=== PATIENT | female | born 1945 | race Asian ===

== ENCOUNTER → 2020-05-23 08:46 | Outpatient (CLI) | payer MEDICARE, OTHER, SELFPAY ==
[2020-05-23 10:58] LABS: COVID19 -Nasal RAPID Negative (Negative)
== END ==
PROVIDERS: Visit Provider Nurse Practitioner
DX: Z01.812 Encounter for preprocedural laboratory examination (principal); Z20.822 Contact with and (suspected) exposure to COVID-19
CPT/HCPCS: 87635; C9803

== ENCOUNTER 2020-05-24 06:29 | Day surgery (SDC) | payer MEDICARE, OTHER, SELFPAY ==
[2020-05-17 08:52] VITALS: BMI 24.6
[2020-05-24] VITALS (14 sets, daily range): BP systolic 112–147; BP diastolic 49–85; PULSE 55–92; RESP 13–21; TEMP 35.8–36.4; O2SAT 95–99; BMI 23.2
--- NOTE | 2020-05-24 | DI.RAD.S_ITS ---
PROCEDURE: XR CERVICAL SPINE 2V OR 3V INDICATIONS: C5-6 ACDF (HODA-C) TECHNIQUE: 2 operative view(s) of the cervical spine were acquired. COMPARISON: None. FINDINGS: Operative C-arm imaging demonstrates ACDF at C5-C6 with no radiographic evidence of complications. IMPRESSION: Operative imaging utilized during ACDF at C5-C6. Dictated by: Jesu López M.D. on 05/24/2020 at 10:05 Approved by: Jesu López M.D. on 05/24/2020 at 10:06
[2020-05-24] MEDS: ACETAMINOPHEN 325 MG TABLET 975 MG PO (06:53)
[2020-05-24] MEDS: LACTATED RINGERS 1,000 ML 42 ML IV (06:53)
--- NOTE | 2020-05-24 07:09 | PM.PREOP ---
Pre-operative Note COVID-19 COVID-19 status: Negative Result date/Date tested (Pos, Neg/Pending): 05/23/20 Interval Note History & Physical reviewed/Exam performed by Physician: Yes Changes to H&P: No
[2020-05-24] MEDS: CEFAZOLIN 2 GM/100 ML FROZ.PIGGY IV (07:53)
--- NOTE | 2020-05-24 08:30 | SUR.OPER ---
Supine, head on gel donut. Arms padded with gel pads, tucked at sides, towel roll under shoulders. Safety belt at thigh. Legs uncrossed.
[2020-05-24] MEDS: BUPIVACAINE 0.25% W/ EPI 30 ML VIAL 60 ML INJ (08:38)
[2020-05-24] MEDS: SODIUM CHLORIDE 0.9% 1,000 ML, GENTAMICIN 80 MG IRR (08:39)
[2020-05-24] MEDS: THROMBIN (RECOMBINANT) 5,000 UNIT VIAL 5000 UNIT TOP (08:39)
--- NOTE | 2020-05-24 09:06 | P.OP_ITS ---
Operative Date/Time/Diagnoses Date of procedure: 05/24/20 Time of procedure: 09:06 Pre-op diagnosis: Cervical disc herniation with myelopathy Post-op diagnosis: same Procedure & Clinicians Procedure: C5-6 ACDF with cage Iliac crest bone graft aspirate Use of microscope Same procedure as scheduled: Yes Indications: [age] year old female with intractable pain from cervical myelopathy. They had failed conservative management and requested operative intervention. Risks and benefits of surgery were discussed and appropriate consents were obtained. Surgeon: Solo Vega [employer] Associate: Annie Vu Anesthesia Type: General Operative Notes Findings: None Closure Type: primary Specimen(s): none sent Prosthetic devices, grafts, tissues, transplants, or devices: Dyan HODA-C Estimated Blood Loss (mL): 5 Procedure in detail: Patient was brought to the operating room and intubated on the table. A time-out was performed. Preoperative antibiotics were given. The neck was prepped and draped in the standard sterile fashion. Using a skin fold, we made a 3 cm oblique incision on the left side. We used Bovie to go through the platysma and then did a standard anterolateral blunt dissection down to the precervical fascia. Fascia was nicked and elevated up. A marker was placed and x-ray was taken for localization. We then subperiosteally elevated up the longus colli muscles. Self-retaining retractors were placed. Ca spar pins were placed. We then brought in the microscope. A scalpel used to perform an annulotomy. We then used a combination of pituitaries and curettes and Kerrison to perform a complete anterior diskectomy at C5-6. We used the bur to take down the posterior osteophytes. We took down the PLL and used Kerrison to remove any posterior disc material and osteophytes. At the end we could from the nerve hook cephalad caudally and out the foramen and everything was opened. A small stab incision was made over the left anterior iliac crest. A Jamshidi needle was advanced into the pelvis and 2 mL of bone marrow was aspirated. We then used the trials. We then packed a 12 x 15.5 x 5 mm anatomic HODA-C cage with Primagen bone graft and the iliac crest harvest. The cage was placed under fluoroscopic guidance. We then placed our two locking plates. The self- retaining retractors and Keyport pins were removed and final x-rays taken. The wound was irrigated. There was no bleeding. The carotid was beating nicely. The platysma was closed. The superficial was closed. The skin was closed. A sterile dressing was placed. They were then extubated and brought to recovery room with no complications. Complications: none Post-operative Condition: stable Disposition: PACU Plan for aftercare: Overnight admission. Soft collar for comfort.
[2020-05-24] MEDS: CELECOXIB 200 MG CAPSULE 400 MG PO (13:10)
[2020-05-24] MEDS: ACETAMINOPHEN 325 MG TABLET 650 MG PO ×2 (13:11→20:26)
[2020-05-24] MEDS: BENZOCAINE/MENTHOL 1 LOZ PKT 1 EACH PO (13:11)
--- NOTE | 2020-05-24 14:53 | PC.NURSE ---
Ortho: Was able to tolerate diet. Pt reports throat feels sore and hot. Got a cough drop and she said it was a little better. Has voided since surgery. Seen by PT at 1445 and didn't pass safety. She will be staying the night. Dr. Vega made aware/was here. Son is at bedside.
--- NOTE | 2020-05-24 14:55 | PT.IIE ---
Current Diagnoses Spinal stenosis, cervical region (05/24/20) Strain of muscle, fascia and tendon at neck level, initial encounter (05/24/20) Surgery Performed Operation Date: 05/24/20 07:45 Actual Procedures p C56 anterior cervical discectomy and fusion w. bone graft - Solo Vega MD Surgical History (Last Updated 05/17/20 @ 09:14 by Avis Dominguez RN) History of 2 sections Hx of angioplasty (~2000) Medical History CAD (coronary artery disease) CHF (congestive heart failure) (~07/2019) HLD (hyperlipidemia) HTN (hypertension) Language barrier Physical Therapy Inpatient Evaluation M1 PT/OT-IP Prior Functional Status Start: 05/24/20 15:19 Freq: NEEDED Status: Active Protocol: Document 05/24/20 15:19 [facility] (Rec: 05/24/20 15:57 [facility] [id number]) Medical Review Prior Functional Status Communication Independent to states her needs, pt is soft spoken at times hard to hear what she is saying. Mobility and Gait Prior pt states does use any devices to walk with and prior to left sided weakness which started in July 2019 and able to walk her dog 3-5 miles a day. Pt states now mainly just walkiing inside the house. Activities of Daily Living and IADL's Pt states able to do all ADl's , IADL's and currently her stove is broken and that he son and her have been eating out a lot. Prior Functional Level (Other details) Pt lives with her son, Amilcar and he will be staying at home to assist for the 1st 1.5 weeks to assist with her needs. However, pt insistent on not having him help for hygiene and showering needs. Social History Household Members children Living Arrangements House Number of Floors (Floors) One Floor Number of Stairs To Enter/Railing? One step from the garage and use of door frame and door knob or right rail with one step from the front porch. Home Environment Standard Height Toilet,Walk in Shower M2 PT-IP Current Condition Start: 05/24/20 13:34 Freq: NEEDED Status: Active Protocol: Document 05/24/20 14:49 AW (Rec: 05/24/20 15:59 AW [id number]) Physical Therapy Current Condition Current Condition Evaluation Date 05/24/20 Treatment Diagnosis C5-6 ACDF; left-side weakness; decreased independence with ADL's Onset Date 05/24/20 Precautions Cervical Spine Precautions Soft Collar for Comfort,No Heavy Lifting,Log Roll Brace soft cervical collar for comfort M3 PT-IP Subjective Start: 05/24/20 13:34 Freq: NEEDED Status: Active Protocol: Document 05/24/20 14:49 AW (Rec: 05/24/20 15:59 AW [id number]) Subjective Physical Therapy Visit Type Type Initial Evaluation Visit Start Time 13:53 Visit Stop Time 14:49 Total Visit Minutes 56 Notes Co-eval with OT Number of CARRIER WASHER Visits 0 Physical Therapy Visit Comments Patient Comments Pt is willing to participate with therapy Patient Goals Pt hopes to go home to take care of her dogPat. Therapy Pain Assessment Pain When Pain Assessed During Mobility Pain Present Pain Present Denied Pain M4 PT-IP Mobility and Gait Start: 05/24/20 13:34 Freq: NEEDED Status: Active Protocol: Document 05/24/20 14:49 AW (Rec: 05/24/20 15:59 AW [id number]) PT-Bed Mobility Assessment Rolling Type of Rolling Log Rolling Level of Assist Minimal Assistance,Moderate Assistance,1 Person Assistance Supine to Sit Supine to Sit Minimal Assistance,Moderate Assistance,1 Person Assistance Sit to Supine Sit to Supine Minimal Assistance,Moderate Assistance,1 Person Assistance ,Bedrails Scooting Scooting to Edge of Bed Contact Guard Assistance PT-Transfer Assessment Sit to and From Stand Sit to and from Stand Standby Assistance,Contact Guard Assistance,1 Person Assistance Equipment Transfer Assistive Device Gait Belt Orthotic/Prosthetic Devices or Brace: Yes Transfers Transfer Destination Bed,Chair,Toilet Transfer Technique Stand Step Pivot Transfer Ability Level of Assist Contact Guard Assistance Comments Mobility Comments Pt was sitting up in the chair with feet up on cushion as PT and OT arrived. She was able to scoot forward on the chair and to stand CGA. She ambulated without AD to the toilet where she required CGA while pulling down her briefs and to transfer. When finished , she ambulated to the sink CGA for hygiene tasks. She was able to open toothpaste without UE support on the counter. Pt then donned a face mask and ambulated in the halls SBA ~220 feet. Gait speed was WNL and predicts safe home and community ambulation. On return to the room, pt agreed to practice bed mobility. Pt's bed is tall and she uses a step to climb up. With platform step as side of bed, pt demonstrated how she normally climbs the step facing the bed and then places her right knee up on the bed before turning to lie down. PT instructed pt on log roll technique. Pt had difficulty coordinating the movement and required min to mod assist and constant cues for sequencing. Pt agreed that log roll felt less stressful on her neck. Pt stepped off the platform and transferred to the chair CGA. PT left as OT continued treatment. Gait Assessment Gait Gait Assistance Required: Standby Assistance Distance (Feet) 220 Able to Maintain Weight Bearing Status Yes During Gait Assistive Devices Assistive Device Gait Belt Orthotic/Prosthetic Devices or Brace: Yes Gait Deviations General Gait Pattern Decreased Feet Clearance, Flexed Trunk,Narrow Based Gait Factors Limiting Gait Function Factors Limiting Gait Function Decreased Strength Comments Gait Comments See mobility comments for details. Pt ambulates with flexed posture and requires cues for scanning the environment (increased need currently due to restricted lower field of vision with soft collar). Stair Climbing Assessment Evaluation Level of Assist On Stairs Contact Guard Assistance Devices Stair Climbing Assistive Devices None Technique/Endurance Stair Climbing Direction Ascend and Descend Number of Steps Climbed 1 Query Text: Stair Climbing Set # Repetitions (reps) 2 Comments Stair Climbing Comments CGA for platform step next to bed. Pt held on to mattress as she stepped up and down. PT-Balance Assessment Sitting Balance and Reactions Static Sitting Balance Ability Good Dynamic Sitting Balance Ability Good Standing Balance and Reactions Static Standing Balance Ability Good Dynamic Standing Balance Ability Good Device Used no AD M5 PT-IP Objective Assessments Start: 05/24/20 13:34 Freq: NEEDED Status: Active Protocol: Document 05/24/20 14:49 AW (Rec: 05/24/20 16:14 AW [id number]) Orientation Orientation/Cognition Level of Alertness Alert Orientation Name,Month,Place,Situation Language Function Ability [place] as Second Language Safety Awareness Decreased Safety Awareness Memory Description Short Term Impaired Gross Range of Motion Lower Extremity ROM Assessment Within Functional Limits Strength Lower Extremity Strength Assessment Left Impaired Comments Strength Comments RLE grossly 5/5; LLE 4+/5 Coordination Assessment Gross Coordination Gross Coordination Impaired Assessment Finger to Nose Test Minimal Impairment Pronation/Supination Test Minimal Impairment Sensation Assessment Sensation Gross Sensation WNL Comments Sensation Comments Pt denied sensation disturbance in all extremities . Muscle Tone Comments Muscle Tone Comments Pt not assessed for tone but does ambulate with LUE held in modified flexor pattern. Pt states she was evaluated for CVA earlier this year but imaging ruled out stroke. M6 PT-IP Treatment Start: 05/24/20 13:34 Freq: NEEDED Status: Active Protocol: Document 05/24/20 14:49 AW (Rec: 05/24/20 16:14 AW [id number]) Physical Therapy Treatment Education Education Provided Precautions,Post-Op Packet, Safety Brace Education Donning,Fordyce,Patient Other Treatments Other Treatment Performed Used mirror for visual feedback to teach donning/ doffing soft cervical collar. M7 PT-IP Assessment and Plan Start: 05/24/20 13:34 Freq: NEEDED Status: Active Protocol: Document 05/24/20 14:49 AW (Rec: 05/24/20 16:14 AW [id number]) PT Summary Assessment and Plan Potential Rehabilitation Potential Good Status of Condition at Evaluation Evolving Summary Impairments Pain,ROM,Strength,Balance,Bed Mobility,Transfers,Gait Assessment Summary Marlyn is a 75yo woman seen for PT evaluation on POD0 following C5-6 ACDF. She is independent with household mobility at baseline and states she was walking several miles daily before beginning to experience pain and numbness in her left side last July. Pt required SBA for ambulation, CGA for transfers, and min to mod assist for bed mobility on evaluation. She had difficulty initiating movement with her left arm, in particular, during bed mobility attempts. She has options for sleeping at home, including a recliner, a low couch, and a tall bed. Pt would benefit from at least one more acute PT session to reinforce mobility skills and for caregiver training with her son who lives with her. CGT to take place at 10:00 Thursday. Pt would also benefit from continued therapy either via HH or outpatient PT. Goals Bed Mobility Goal Standby Assistance Transfer Goal Independent Gait Goal Independent Gait Distance 200 Other Goals - IF pt decides to sleep in bed at home, pt will enter/ exit tall bed with platform step SBA Days to Meet Goals 4 Frequency of Treatment Frequency Of Treatment Twice a Day Treatment Plan Physical Therapy Treatment Plan Bed Mobility Training,Transfer Training,Gait Training, Therapeutic Exercise,Balance Retraining,Post Op Education, Discharge Planning,Hot or Cold Pack,Neuromuscular Re-ed, Coordination Retraining Other Recommendations and Next Treatment caregiver training focused on Focus bed moblility and transfers with sonAmilcar at 10:00 AM Thursday Recommendations To Nursing Amount of Assist Needed 1 Person Assist Discharge Recommendations PT Discharge Recommendations Home with Assistance,Home Health,Outpatient PT Other Discharge Recommendations Home with assist and HH vs outpatient PT Equipment Needed for Home Before shower chair Discharge Transportation Needs at Discharge Private Vehicle
--- NOTE | 2020-05-24 15:08 | OT.IP.EVAL ---
Current Diagnoses Spinal stenosis, cervical region (05/24/20) Strain of muscle, fascia and tendon at neck level, initial encounter (05/24/20) Surgery Performed Operation Date: 05/24/20 07:45 Actual Procedures p C56 anterior cervical discectomy and fusion w. bone graft - Solo Vega MD Past Medical History CAD (coronary artery disease) CHF (congestive heart failure) (~07/2019) HLD (hyperlipidemia) HTN (hypertension) Language barrier Surgical History (Last Updated 05/17/20 @ 09:14 by Avis Dominguez RN) History of 2 sections Hx of angioplasty (~2000) Occupational Therapy Inpatient Evaluation/Re-Eval M1 PT/OT-IP Prior Functional Status Start: 05/24/20 15:19 Freq: NEEDED Status: Active Protocol: Document 05/24/20 15:19 [facility] (Rec: 05/24/20 15:57 [facility] [id number]) Medical Review Prior Functional Status Communication Independent to state her needs, pt is soft spoken at times hard to hear what she is saying. Mobility and Gait Prior pt states does use any devices to walk with and prior to left sided weakness which started in July 2019 and able to walk her dog 3-5 miles a day. Pt states now mainly just walking inside the house. Activities of Daily Living and IADL's Pt states able to do all ADl's , IADL's and currently her stove is broken and that he son and her have been eating out a lot. Prior Functional Level (Other details) Pt lives with her son, Amilcar and he will be staying at home to assist for the 1st 1.5 weeks to assist with her needs. However, pt insistent on not having him help for hygiene and showering needs. Social History Household Members children Living Arrangements House Number of Floors (Floors) One Floor Number of Stairs To Enter/Railing? One step from the garage and use of door frame and door knob or right rail with one step from the front porch. 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 Patient/Caregiver Goals To go home to her dog OT Pain Assessment Pain When Pain Assessed At Rest Pain Present Pain Present Denied Pain M4 OT- IP ADL's Start: 05/24/20 15:19 Freq: Status: Active Protocol: Document 05/24/20 15:19 [facility] (Rec: 05/24/20 15:57 [facility] [id number]) OT [id number] Comments OT Self-Feeding Comments Able to go over and give information regarding sitting upright to eat, chew food thoroughly, and eat softer food. OT ADL-Grooming General Evaluation Grooming Ability Standby Assistance Areas Needing Assistance Retrieving/Set-up of Grooming Items Comments OT Grooming Comments Pt having difficulty to tighten the soft collar and needing a little assist from therapist. to continue to practice tomorrow. OT ADL-Oral Care General Eval Oral Care Ability Standby Assistance Comments Oral Care Comments VC to spit into a cup to best follow her cervical precautions. OT ADL-Dressing General Eval Lower Body Dressing Ability Minimal Assistance,Maximum Assistance Comments OT Dressing Comments Pt not able to edgar/doff socks as prior would bend over while standing to doff her socks. Able to issue and show pt use of sock aid and jewelry appraiser to help improve her independence with LB dressing needs. In addition emphasized for pt to sit for all dressing needs. OT ADL-Toileting General Evaluation Toileting Ability Minimal Assistance Areas Needing Assistance Manage Clothing Comments OT Toileting Comments Pt needing assist to help pull down the brief over her hips and then back up. OT ADL-Bathing Comments OT Bathing Comments TO do showering with OT tomorrow. Initially pt not wanting to shower and felt insistent able to do it on her own like how she did before which was standing. M5 OT- IP IADL's Start: 05/24/20 15:19 Freq: Status: Active Protocol: Document 05/24/20 15:19 [facility] (Rec: 05/24/20 15:57 [facility] [id number]) OT-Instrumental Activities of Daily Living Home Safety Awareness Awareness of Need for Assistance at Home Decreased Awareness Home Safety Comments Pt a bit groggy and at this time would benefit from assist with all needs of medications , finances, ADl , and IADl needs. Money Management Money Management Comments Pt states mainly just signs the checks and her son fills out the rest as her hand shakes. M6 OT- IP Functional Cognition Start: 05/24/20 15:19 Freq: Status: Active Protocol: Document 05/24/20 15:19 [facility] (Rec: 05/24/20 15:57 [facility] [id number]) Cognitive Factors Limiting Selfcare Function Cognitive Ability Level of Alertness Alert,Drowsy Patient Orientation Name,Place,Situation Attention Span Ability Capable of Focused Attention, Capable of Sustained Attention Ability to Follow Commands Able to Follow One Step Commands with Increased Time, Able to Follow One Step Commands with Repetition Memory Description Short Term Impaired,Working Impaired Safety Awareness Decreased Ability to Apply Precautions,Underestimates Need for Assistance Problem Solving Ability Unable to Identify Errors, Needs Assist to Identify Solutions Cognitive Comments Cognitive Assessment Comments Pt having difficulty to follow directions, slow to initiate movement of left side when scooting on the bed. Pt needing step by step instructions to follow for bed mobility. Pt son's did not feel that pt has any cognitive deficits and feels that she is at her baseline. OT- Vision Assessment Visual Acuity Glasses For Reading Vision Assessment Comments Reading/Sewing glasses M7 OT- IP Mobility and Balance Start: 05/24/20 15:19 Freq: Status: Active Protocol: Document 05/24/20 15:19 [facility] (Rec: 05/24/20 15:57 [facility] [id number]) OT- Bed Mobility Assessment Supine to Sit Supine to Sit Assist Minimal Assistance,Moderate Assistance Sit to Supine Sit to Supine Assist Minimal Assistance,Moderate Assistance OT-Transfer Assessment Sit to and From Stand Sit to and from Stand Contact Guard Assistance Transfers Transfer Ability Standby Assistance,Contact Guard Assistance Technique Transfer Destination Bed,Chair,Toilet Transfer Technique Stand Step Pivot Devices Transfer Assistive Devices None,Gait Belt Comments Mobility Comments Pt MODA to help to roll to her side and assist to help get her legs over. Pt having trouble to initiate movements for log rolling and how to more her left arm to assist. Pt did better with use of the bed rail and states to obtain one. Pt has another option of sleeping in a deep recliner or low couch. Pt son states prior would get behind the recliner and assist to pull her back from underneath her arms. Suggested would be best at this time to place a sheet in the recliner and assist her by pulling on the sheet. OT- Gait Assessment Comments Gait Ability Comments Close SBA. OT- Balance Assessment Sitting Balance and Reactions Static Sitting Balance Ability Normal Dynamic Sitting Balance Ability Good Standing Balance and Reactions Static Standing Balance Ability Fair M8 OT- IP Objective Assessments Start: 05/24/20 15:19 Freq: Status: Active Protocol: Document 05/24/20 15:19 [facility] (Rec: 05/24/20 15:57 [facility] [id number]) OT Gross Range of Motion Upper Extremity Range of Motion Assessment Within Functional Limits OT Strength Upper Extremity Strength Assessment Left Impaired Comments Strength Comments Left UE graphics software engineer 4/5 versus 5/5 for Right UE graphics software engineer. OT- Coordination Assessment Upper Extremity Finger to Nose Test Left UE Impaired Comments Coordination Comments Noted left hand shakes when reaching out for pt's hand versus right hand smooth movements. OT Sensation Assessment Comments Summary Comments Intact for light touch. M9 OT- IP Assessment and Plan Start: 05/24/20 15:19 Freq: Status: Active Protocol: Document 05/24/20 15:19 [facility] (Rec: 05/24/20 15:57 [facility] [id number]) OT Summary Assessment and Plan Potential Rehabilitation Potential Good Analytic Complexity at Evaluation Low Summary OT Impairments Strength,Balance,Coordination, Functional Cognition, Functional Mobility,Self- Feeding,Grooming,Dressing, Toileting,Bathing,Toilet Transfers,Shower Transfers, Activity Tolerance Progress Towards Goals Progressing Toward Goals Assessment Summary Pt low complexity and main barriers are step to her bed, pt a bit impulsive, and having difficulty with initiation of her left side, however pt states has had weakness on left side since July of last year. Pt also would benefit form continues practice for log rolling and other safety measures to assist with her safety for ADL and functional mobility needs. Pt's son to come tomorrow for caregiver training. Pt would benefit from assist at home and home health. Notified nursing best for pt to have a chair alarm as pt not thinking well and a little impulsive. Goals Self-Feeding Goal Independent Grooming Goal Independent Dressing Goal Independent Toileting Goal Independent Bathing Goal Independent Toilet Transfer Goal Independent Shower Transfer Goal Independent Patient/Caregiver Education Goal Demonstrate Post-Op Precautions,Caregiver Independent Assisting Patient Days to Meet Goals 2 Frequency of Treatment Frequency Of Treatment Once a Day Treatment Plan OT Treatment Plan ADL Training,Functional Cognition Training,Functional Mobility,Patient/Family Education,Discharge Planning Other Treatment Recommendations and Next Shower and practice LB Treatment Focus dressing equipment Discharge Recommendations OT Discharge Recommendations Home with / Assist,Home Health Home Equipment Needs shower chair, bed rail Transportation Needs at Discharge Private Vehicle
[2020-05-24] MEDS: LACTATED RINGERS 1,000 ML 125 ML IV ×2 (15:34→23:40)
[2020-05-24] MEDS: CEFAZOLIN 1 GM/50 ML FROZ.PIGGY IV ×2 (15:47→23:40)
--- NOTE | 2020-05-24 15:49 | PC.NURSE ---
Addendum entered by Olivia Lim R.N. 05/24/20 22:17: Able to swallow meds whole with water without difficulty. I.S. teaching done and pt able to provide return demonstration. Pt's son is rooming in. Calf scd's in place BL. Frequently calls to assist with toileting in bathroom. Is slightly unsteady on feet. Continues to deny pain. Addendum entered by Olivia Lim R.N. 05/24/20 18:15: Pt does report some difficulty with swallow taking evening meal. No distress noted and pt swallows ice cream, mashed potatoes and several bites of meat and vegetables. Gauze dressing to right anterior neck dry and intact with soft collar in place. Single wide steristrip x 1 intact to left hip with scant amount drainage. Original Note: Pt sitting quietly up in recliner with eyes closed. Rouses easily to tactile stimuli. Denies pain when asked. States somewhat difficult to swallow, but pt is able to manage own airway and secretions. Reinforced to pt need to use call light when needing or desiring out of chair. Pt acknowledges understanding and agreement. Reoriented to call light which is in pt's lap. Soft collar in place. IV fluids and iv antibiotic infusing as ordered to right wrist iv site without difficulty.
[2020-05-24] MEDS: DOCUSATE 100 MG CAPSULE PO (20:25)
[2020-05-24] MEDS: CELECOXIB 200 MG CAPSULE PO (20:25)
[2020-05-24] MEDS: SENNOSIDES 8.6 MG TABLET 17.2 MG PO (20:26)
--- NOTE | 2020-05-25 02:12 | PC.NURSE ---
0478 patient is alert and oriented but difficult to understand due to Telugu being second language. Breath sounds CTA with RA sat of 95%. HRR. Denies nausea. BT present and states she is passing flatus. Denies dysuria or urgency with urination but states she has frequency which is chronic. Is able to move herself in bed and gets up to bathroom with SBA. Dressing to anterior neck and left iliac crest are CDI; wearing soft collar. Bilateral foot SCD's applied. Fall risk score is moderate and bed alarm is activated. Son rooming in.
[2020-05-25 05:27] VITALS: BP 116/62; PULSE 59; RESP 16; TEMP 36.1; O2SAT 97
--- NOTE | 2020-05-25 07:51 | PM.PNPO.1 ---
Subjective Subjective Date Patient Seen: 05/25/20 Time Patient Seen: 07:52 Interval history: She is doing very well. Minimal pain, only taking Tylenol. Exam Vital Signs (past 8 hours): - 05/24/20 23:59 05/25/20 05:27 Temperature 97.0 F L 97.0 F L Pulse Rate 61 59 L Respiratory Rate 16 16 Blood Pressure 137/67 116/62 Pulse Oximetry 95 97 Oxygen Delivery Method Room Air Oxygen Flow Rate 0 Const Orientation: alert and oriented x3 Back/Spine/Pelvis Other: CDI. 5/5 motor both upper extremities. PFSH Medical History CAD (coronary artery disease) CHF (congestive heart failure) (~07/2019) HLD (hyperlipidemia) HTN (hypertension) Language barrier Surgical History (Updated 05/17/20 @ 09:14 by Avis Dominguez RN) History of 2 sections Hx of angioplasty (~2000) Social History household members: children Smoking Status: Never smoker alcohol intake: former Assessment & Plan Post-op Postoperative Procedures: Procedures Operation Date: 05/24/20 07:45 Actual Procedures Side Surgeon p C56 anterior cervical discectomy and fusion w. bone graft Solo Vega MD She is doing very well. Plan to discharge home today. Quality VTE Deep Vein Thrombosis/Pulmonary Embolism Present on Admission: No
[2020-05-25] MEDS: lisinopriL 10 MG TABLET PO (08:16)
[2020-05-25] MEDS: DOCUSATE 100 MG CAPSULE PO (08:16)
[2020-05-25] MEDS: CELECOXIB 200 MG CAPSULE PO (08:16)
[2020-05-25] MEDS: ASPIRIN EC 81 MG TABLET PO (08:16)
[2020-05-25] MEDS: ACETAMINOPHEN 325 MG TABLET 650 MG PO (08:19)
[2020-05-25 08:45] VITALS: BP 136/77; PULSE 63; RESP 16; TEMP 36.6; O2SAT 99
--- NOTE | 2020-05-25 09:48 | ST.IPSCREEN ---
Pt seen s/p ACDF surgery. Pt was in her room with her son. Pt reports slight soreness with swallow. No changes in voice reported. Education provided to contact MD if any changes in voice and/or swallowing arise. Pt and son indicated they understood and were appreciative.
--- NOTE | 2020-05-25 10:14 | CM.DANOTE ---
Discharge Planning/Care Management DCP: assessment: case received, EMR reviewed, dc order to home setting today is noted, met with pt and her son Dwain. Introduced self and role. Pt was working with PT so focused on confirming d/c plan with the son. Is also noted that pt's primary language is Mohawk. Pt is a 75 year old female who admitted yesterday for a scheduled spinal/cervical surgery. Surgeon: Dr. Vega Payer: Medicare and [employer]. PT/OT/TEXTILE CONSERVATOR are all working with pt and incorporating Dwain into the sessions for caregiver training. Dwain confirms he lives with pt and is able to assist her as need be. Followup with Dr. Vega is planned. Home later today after therapy is completed. RN Cherise is working with pt today and confirms same. Advanced directive, confirm from FAMILY Start: 05/24/20 11:09 Freq: Q24H Status: Active Protocol: Document 05/24/20 11:19 [facility] (Rec: 05/24/20 11:20 [facility] [id number]) Advance Directive, confirm on record Time 11:19 Person contacted Franklyn Copy received No CM Discharge Assessment Start: 05/25/20 10:13 Freq: Status: Active Protocol: Document 05/25/20 10:13 ITV (Rec: 05/25/20 10:14 ITV [id number]) Discharge Planning Assessment Advance Directives? Yes History Provided By Patient,Family Member,Medical Record Prior Living Arrangements House Household Members children Comment lives with her son Dwain Mascorro , here at bedside and getting caregiver training with the therapy team. Is patient alert and oriented? Yes Discharge Plan Home Pre-Anesthesia Assessment Start: 05/17/20 08:52 Freq: Status: Complete Protocol: Document 05/17/20 08:52 [facility] (Rec: 05/17/20 09:32 [facility] [id number]) Pre-Anesthesia Assessment PAC Comment Son needs to be w/pt to interpret. Pt speaks Divehi, but minimal understanding Patient Information Reviewed Via Phone Assessment Assessment Completed With Child Comment Assessment completed with sonAmilcar. Pt speaks Mohawk Diagnostic Results BMP/CMP,CBC,EKG Comment Outside labs/EKG scanned, COVID screen @ 05/23/20 Primary Care Provider Carmen Henriquez Medical Clearance Received Yes Seen Specialist in Last 12 Months Yes Specialist Seen Orthopedist Comment PCP clearance scanned Primary Language Mohawk Preferred Language Business Communications Instructor Required Yes Comment Son needs to be w/pt to interpret. Speaks Divehi, minimal understanding Height 147.32 cm Weight 53.524 kg Body Mass Index (BMI) 24.6 Hearing Ability Normal Visual Assist Glasses Dentition Type Full- Upper & Lower Barriers to Learning Language Hx Anesthesia Reactions No Hx Family Anesthesia Reaction No Hx Malignant Hyperthermia No Hx Blood Transfusions No Anesthesia Review Requested No alcohol intake former Smoking Status Never smoker Substance Use Type does not use Pain Present Pain Reported Musculoskeletal Symptoms Abnormal Gait,Difficulty Walking,Limited Range of Motion,Muscle Weakness,Neck Pain,Radiating Pain into Limb History of Falling (Recent or History of No ) Patient is completely paralyzed or No completely immobile Mental Status Oriented to own ability Is patient on oxygen? No Does patient have ANGELA/SOB No Hx Sleep Apnea No Currently Taking a Beta Karrie Yes: Atenolol Hx Chest Pain No Hx SOB Yes: Improved w/diuretics, no longer on Hx Syncope or Dizziness No Anti-Coagulant Therapy Yes: 81mg ASA for angioplasty w/stent over 20 years ago Has a Behavioral Health Counselor No Cardiac Testing No Hx Pacemaker/ICD No Pacemaker Rep Required? No Cardiac Clearance Received Not Applicable Diet Type At Home Regular dysphagia No Bladder Pattern Frequency Urinary Catheter Present No Hx Urinary Self Catheterization No Diabetes No Patient No Lactating No Hx Drug Resistant Organism No Presence of External or Internal Medical Yes: Cardiac stent Devices Have you had any close contact with No someone diagnosed with COVID-19? Marital Status / Lives With children Prior Living Arrangements House Number of Floors (Floors) One Floor Support System Child/Children Does the Patient Have Assistance After Yes Surgery Patient Discharge Plan Description Return Home Comment Advised possible overnight length of stay per surgeon Feels Safe in Current Environment Yes Been Physically Hurt or Threatened By a No Person in Current Environment Do you have thoughts of harming yourself None or others? Are you currently considering suicide? No Do you have a plan to hurt yourself or No Plan others? Do You Have Any Spiritual Beliefs That No May Affect Your HC Choices? Do You Have Any Cultural Practices That No May Affect Your HC Choices? Comment Yazidism Who Can We Speak to About Patient's Care Family, friends Identifying Code for Release of Patient Declines to issue Information Health Care Proxy/Next of Kin Amilcar (magdiel) Health Care Proxy Emergency Contact Name Amilcar (son) Fran (son) Emergency Contact Phone Number Amilcar: [phone] Fran: [phone] Advance Directives? No Power of Dielectric Tester No PAC Instructions Medications to take/avoid, Nasal antibiotic,No ETOH/ petroleum product on skin DOS, NPO,Post-op transportation,Pre -surgical wash,Sensory aids, Sturdy shoes/comfortable clothes,Do not bring valuables and remove jewelry
--- NOTE | 2020-05-25 10:15 | PT.IPTN ---
Current Diagnoses Spinal stenosis, cervical region (05/24/20) Strain of muscle, fascia and tendon at neck level, initial encounter (05/24/20) Surgery Performed Operation Date: 05/24/20 07:45 Actual Procedures p C56 anterior cervical discectomy and fusion w. bone graft - Solo Vega MD Physical Therapy Treatment Note M2 PT-IP Current Condition Start: 05/24/20 13:34 Freq: NEEDED Status: Discharge Protocol: Document 05/24/20 14:49 AW (Rec: 05/24/20 15:59 AW [id number]) Physical Therapy Current Condition Current Condition Evaluation Date 05/24/20 Treatment Diagnosis C5-6 ACDF; left-side weakness; decreased independence with ADL's Onset Date 05/24/20 Precautions Cervical Spine Precautions Soft Collar for Comfort,No Heavy Lifting,Log Roll Brace soft cervical collar for comfort M3 PT-IP Subjective Start: 05/24/20 13:34 Freq: NEEDED Status: Discharge Protocol: Document 05/25/20 09:40 SP (Rec: 05/25/20 13:52 SP [id number]) Subjective Physical Therapy Visit Type Type Treatment Note Visit Start Time 09:40 Visit Stop Time 10:15 Total Visit Minutes 35 Notes Manoj Prakash was present, completed caregiver training and provided physical assistance needed throughout full tx. Number of BOAT PAINTER Visits 1 Physical Therapy Visit Comments Patient Comments Pt is willing to participate with therapy. Patient Goals Pt hopes to go home to take care of her dog, Pat. Therapy Pain Assessment Pain Present Pain Present Denied Pain M4 PT-IP Mobility and Gait Start: 05/24/20 13:34 Freq: NEEDED Status: Discharge Protocol: Document 05/25/20 09:40 SP (Rec: 05/25/20 13:52 SP [id number]) PT-Bed Mobility Assessment Rolling Type of Rolling Log Rolling,Bilateral Level of Assist Minimal Assistance,1 Person Assistance Supine to Sit Supine to Sit Minimal Assistance,Moderate Assistance,1 Person Assistance Sit to Supine Sit to Supine Moderate Assistance,1 Person Assistance Scooting Scooting to Edge of Bed Standby Assistance PT-Transfer Assessment Sit to and From Stand Sit to and from Stand Standby Assistance,1 Person Assistance,Use of Upper Extremities Equipment Transfer Assistive Device None Orthotic/Prosthetic Devices or Brace: Yes Transfers Transfer Destination Bed,Chair Transfer Technique Stand Step Pivot Transfer Ability Level of Assist Standby Assistance Comments Mobility Comments Pt was sitting up in chair collar donned, BLE supported on handled step stool, son in room for caregiver training. Son donned gait belt, pt scooted to EOchair self using BUE on chair arms, sit > stand CGA provided by son and ambulated no AD then forward step up 1 step at bed side to assimulate her bedside step using rail on R and SYRUP MACHINE LABORER on L via son CGA. Pt pivoted 180 deg top step CGA and cued to reach back for bed with good hip hinge slow descent CGA. sit>supine with BOAT PAINTER cuing son for support at upper back and LE assist as needed Min A with cues for staying on L side, CGA- 10% A for BLE repositioning on bed then cued log roll R CG- Min A by son then Juan for upper body repositioning to center in bed and proper pillow support under her head, self BLE repositioning in bed. Sup>LR L > sit Mod A for trunk support righting to sitting by son and allow her pull from his other hand for RUE self support and self BLE to EOB, scoot to EOB sBA. Sit>stand top bed side step L HR and SYR[employer] MACH[employer]ORER on R to step down CGA- 25% A by son. Pt ambulated further into hallway around nursing station approx 150 ft cGA by son, BOAT PAINTER provided education and cuing as needed for slow pacing, upright posture and CGA for safety by son with good demonstration. Pt returned to her chair in room SPT front and slow descent, good alignment and scoot back in chair SBA via son and reprovided foot stool under B LE for support due to decrease stature. Pt requested feedback on walking around house at home and use of stationary bike as did prior to surgery. BOAT PAINTER educated walking around her home maybe every hours for circulation and strength, stationary bike would be ok with good alignment positioning maybe 3- 5 minutes max knowing no head support at this time, not over doing it. Pt's son stated doctor commented no walking her dog for at least 6 weeks, and BOAT PAINTER confirmed refer to her physician for any more activity allowed at next appt. At this time important to heal and just low level activity like walking around shorter distance not many laps as pre surgery. Pt and son confirmed understanding. Pt had call light and all needs in reach before left, son in room with no further questions . Pt is ok to return home with family to assist her when medically cleared. Gait Assessment Gait Gait Assistance Required: Standby Assistance,Contact Guard Assist Distance (Feet) 150 Able to Maintain Weight Bearing Status Yes During Gait Assistive Devices Assistive Device None,Gait Belt Orthotic/Prosthetic Devices or Brace: Yes Gait Deviations General Gait Pattern Antalgic,Decreased Feet Clearance,Flexed Trunk,Narrow Based Gait Factors Limiting Gait Function Factors Limiting Gait Function Decreased Strength Comments Gait Comments See mobility comments for detais. Stair Climbing Assessment Evaluation Level of Assist On Stairs Contact Guard Assistance Devices Stair Climbing Assistive Devices None Technique/Endurance Stair Climbing Direction Ascend and Descend Stair Climbing Technique Step to Step Number of Steps Climbed 1 Stair Climbing Set # Repetitions (reps) 1 Comments Stair Climbing Comments Completed CGT platform step at bedside via son assist to assimulate home elevated bed, used SYRUP MACH[employer] LABORER on L via son assist hand L via son and step rail on R as uses her side table at R at home. Son stated is looking for a bed rail for her bed at home for increased safety and pt's self support. PT-Balance Assessment Sitting Balance and Reactions Static Sitting Balance Ability Good Dynamic Sitting Balance Ability Good Standing Balance and Reactions Static Standing Balance Ability Good Dynamic Standing Balance Ability Good Device Used no AD M5 PT-IP Objective Assessments Start: 05/24/20 13:34 Freq: NEEDED Status: Discharge Protocol: Document 05/24/20 14:49 AW (Rec: 05/24/20 16:14 AW [id number]) Orientation Orientation/Cognition Level of Alertness Alert Orientation Name,Month,Place,Situation Language Function Ability Lithuanian as Second Language Safety Awareness Decreased Safety Awareness Memory Description Short Term Impaired Gross Range of Motion Lower Extremity ROM Assessment Within Functional Limits Strength Lower Extremity Strength Assessment Left Impaired Comments Strength Comments RLE grossly 5/5; LLE 4+/5 Coordination Assessment Gross Coordination Gross Coordination Impaired Assessment Finger to Nose Test Minimal Impairment Pronation/Supination Test Minimal Impairment Sensation Assessment Sensation Gross Sensation WNL Comments Sensation Comments Pt denied sensation disturbance in all extremities . Muscle Tone Comments Muscle Tone Comments Pt not assessed for tone but does ambulate with LUE held in modified flexor pattern. Pt states she was evaluated for CVA earlier this year but imaging ruled out stroke. M6 PT-IP Treatment Start: 05/24/20 13:34 Freq: NEEDED Status: Discharge Protocol: Document 05/25/20 09:40 SP (Rec: 05/25/20 13:52 SP [id number]) Physical Therapy Treatment Education Education Provided Precautions,Post-Op Packet, Safety Brace Education [place],Patient, Caregiver M7 PT-IP Assessment and Plan Start: 05/24/20 13:34 Freq: NEEDED Status: Discharge Protocol: Document 05/25/20 09:40 SP (Rec: 05/25/20 13:52 SP [id number]) PT Summary Assessment and Plan Potential Rehabilitation Potential Good Status of Condition at Evaluation Evolving Summary Impairments Pain,ROM,Strength,Balance,Bed Mobility,Transfers,Gait Progress Towards Goals Progressing Toward Goals Assessment Summary Pt required CGA intially by son for increased safety ambulation, CGA for transfers, and min to mod assist for bed mobility via son assist. Pt completed 1 step assessment to elevated bed as has at home CGA- Min, bed mob Min- Mod via son assist. Pt would also benefit from continued therapy either via HH, ableto return home when medically cleared. Goals Bed Mobility Goal Standby Assistance Transfer Goal Independent Gait Goal Independent Gait Distance 200 Other Goals - IF pt decides to sleep in bed at home, pt will enter/ exit tall bed with platform step SBA Days to Meet Goals 4 Frequency of Treatment Frequency Of Treatment Twice a Day Treatment Plan Physical Therapy Treatment Plan Bed Mobility Training,Transfer Training,Gait Training, Therapeutic Exercise,Balance Retraining,Post Op Education, Discharge Planning,Hot or Cold Pack,Neuromuscular Re-ed, Coordination Retraining Other Recommendations and Next Treatment distance gait, ther ex, bed Focus mobility. Recommendations To Nursing Amount of Assist Needed 1 Person Assist Discharge Recommendations PT Discharge Recommendations Home with Assistance,Home Health Other Discharge Recommendations Home with assist and HH vs outpatient PT Equipment Needed for Home Before shower chair, bed rail (son Discharge looking for) Transportation Needs at Discharge Private Vehicle
[2020-05-25 11:55] VITALS: BP 118/63; PULSE 64; RESP 14; TEMP 36.7; O2SAT 99
--- NOTE | 2020-05-25 11:58 | OT.IP.TRT ---
Current Diagnoses Spinal stenosis, cervical region (05/24/20) Strain of muscle, fascia and tendon at neck level, initial encounter (05/24/20) Surgery Performed Operation Date: 05/24/20 07:45 Actual Procedures p C56 anterior cervical discectomy and fusion w. 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 Patient/Caregiver Goals TO go home. OT Pain Assessment Pain When Pain Assessed At Rest Pain Present Pain Present Denied Pain M4 OT- IP ADL's Start: 05/24/20 15:19 Freq: Status: Active Protocol: Document 05/25/20 12:45 [facility] (Rec: 05/25/20 12:59 [facility] [id number]) OT [id number] Comments OT Self-Feeding Comments Not at meal time. OT ADL-Dressing General Eval Upper Body Dressing Ability Minimal Assistance Lower Body Dressing Ability Minimal Assistance Areas Needing Assistance Managing Buttons,Underpants/ Brief Assistive Devices Dressing Assistive Devices Tool Lathe Operator,Sock Aid Comments OT Dressing Comments Pt needing assist to pull and straighten up her brief and assist for buttons. Pt able to use the hot mill shearer and socks aid with good safety today. OT ADL-Toileting General Evaluation Toileting Ability Minimal Assistance Areas Needing Assistance Manage Clothing Comments OT Toileting Comments Assist with the brief as the gown was in the way. OT ADL-Bathing Bathing Type Bathing Type Shower General Evaluation Bathing Ability Minimal Assistance Areas Needing Assistance Wash/Dry Back Devices Bathing Equipment Shower Chair with Arms,Grab Bars Comments OT Bathing Comments Pt able to shower and just needing assist with her back. Suggested would be best to have her son make sure she gets in the shower safely as pt can just wear a robe as she does not want him to be there for her showering needs. Also states may be beneficial to have her son assist and could use a towel to cover herself as her son can assist to wash his back. M5 OT- IP IADL's Start: 05/24/20 15:19 Freq: Status: Active Protocol: Document 05/24/20 15:19 [facility] (Rec: 05/24/20 15:57 [facility] [id number]) OT-Instrumental Activities of Daily Living Home Safety Awareness Awareness of Need for Assistance at Home Decreased Awareness Home Safety Comments Pt a bit groggy and at this time would benefit from assist with all needs of medications , finances, ADl , and IADl needs. Money Management Money Management Comments Pt states mainly just signs the checks and her son fills out the rest as her hand shakes. M6 OT- IP Functional Cognition Start: 05/24/20 15:19 Freq: Status: Active Protocol: Document 05/25/20 12:45 [facility] (Rec: 05/25/20 12:59 [facility] [id number]) Cognitive Factors Limiting Selfcare Function Cognitive Ability Level of Alertness Alert Patient Orientation Name,Place,Situation Attention Span Ability Capable of Focused Attention, Capable of Sustained Attention Ability to Follow Commands Able to Follow One Step Commands Safety Awareness Underestimates Need for Assistance Problem Solving Ability Needs Assist to Identify Solutions Cognitive Comments Cognitive Assessment Comments Pashto is not the pt's primary language, but today better able to follow directions for ADl needs. M7 OT- IP Mobility and Balance Start: 05/24/20 15:19 Freq: Status: Active Protocol: Document 05/25/20 12:45 [facility] (Rec: 05/25/20 12:59 [facility] [id number]) OT-Transfer Assessment Sit to and From Stand Sit to and from Stand Standby Assistance Transfers Transfer Ability Standby Assistance Technique Transfer Destination Bed,Chair,Shower Stall Transfer Technique Stand Step Pivot Devices Transfer Assistive Devices None Comments Mobility Comments Pt SBA for level surfaces for mobility needs. OT- Balance Assessment Sitting Balance and Reactions Static Sitting Balance Ability Normal Dynamic Sitting Balance Ability Normal Standing Balance and Reactions Static Standing Balance Ability Good M8 OT- IP Objective Assessments Start: 05/24/20 15:19 Freq: Status: Active Protocol: Document 05/24/20 15:19 [facility] (Rec: 05/24/20 15:57 [facility] [id number]) OT Gross Range of Motion Upper Extremity Range of Motion Assessment Within Functional Limits OT Strength Upper Extremity Strength Assessment Left Impaired Comments Strength Comments Left UE glass blower 4/5 versus 5/5 for Right UE glass blower. OT- Coordination Assessment Upper Extremity Finger to Nose Test Left UE Impaired Comments Coordination Comments Noted left hand shakes when reaching out for pt's hand versus right hand smooth movements. OT Sensation Assessment Comments Summary Comments Intact for light touch. M9 OT- IP Assessment and Plan Start: 05/24/20 15:19 Freq: Status: Active Protocol: Document 05/25/20 12:45 [facility] (Rec: 05/25/20 12:59 [facility] [id number]) OT Summary Assessment and Plan Potential Rehabilitation Potential Good Analytic Complexity at Evaluation Low Summary OT Impairments Toileting,Bathing Progress Towards Goals Progressing Toward Goals Assessment Summary Pt much improved today with safety awareness and mobility needs. Pt's son has good understanding to be able to assist pt for all needs. Pt looking to go home today. Discharge Recommendations OT Discharge Recommendations Home with Assistance Home Equipment Needs shower chair, bed rail Transportation Needs at Discharge Private Vehicle
--- NOTE | 2020-05-25 13:35 | PC.NURSE ---
Discharge: Pt feels ready to d/c home. D/c instructions reviewed w/pt and magdiel Estes. Has been seen by MD and given his instructions. Seen by OT/PT/ST and they gave pt final instructions, she is safe to go home. Pt reports plain tylenol is effective for pain. She is voiding w/out diff. Has tolerated her diet w/out problems. Reviewed d/c packet and understood. Given rx. Questions answered. Pt d/c home via auto w/magdiel Estes.
== END 2020-05-25 13:15 | disposition home or self-care (01) ==
LOC: OR 06:32 → AC 06:33
PROVIDERS: PCP Physician Assistant; Referring Provider Physician Assistant; Visit Provider Orthopaedic Surgery
PROC: (CPT 22551; principal; 2020-05-24 07:45)
DX: M50.022 Cervical disc disorder at C5-C6 level with myelopathy (principal); I25.10 Atherosclerotic heart disease of native coronary artery without angina pectoris; I50.9 Heart failure, unspecified; E78.5 Hyperlipidemia, unspecified; I10 Essential (primary) hypertension
CPT/HCPCS: 22551; 22853; 20939; 72040; 76000; 82962; 97116; 97161; 97165; 97530; 97535; C1776; J0690; J1100; J2250; J2405; J2704; J3010

== ENCOUNTER → 2020-12-26 10:42 | Outpatient (CLI) | payer MEDICARE, OTHER, SELFPAY ==
[2020-05-24 10:48] VITALS: BMI 23.2
--- NOTE | 2020-12-26 | DI.US.S_ITS ---
PROCEDURE: US RENAL COMPLETE INDICATIONS: URINARY FREQUENCY TECHNIQUE: Real-time scanning was performed of the kidneys and bladder, with image documentation. COMPARISON: None. FINDINGS: Kidneys: Kidneys are normal in size. Right kidney measures 9 point cm long; left kidney measures 11.2 cm long. Right renal cortical thickness is 1.5 cm; left renal cortical thickness is 1.2 cm. Renal cortical echotexture is normal. No hydronephrosis or nephrolithiasis. No suspicious solid mass lesions. Bladder: Pre-void bladder volume is 216 mL. Post-void residual is 87 mL. Pre-void images demonstrate no intraluminal masses or stones. On pre-void images, neither ureteral jets are noted with color Doppler interrogation. (Of note, ureteral jets may not be detectable in up to 25% of cases due to insufficient differences in specific gravity between ureteral and bladder urine). Miscellaneous: No free pelvic fluid. IMPRESSION: Normal appearance of the kidneys bilaterally. Dictated by: Tc Quiroz [facility] Interpreted: Toma Rider MD on 12/26/2020 at 12:46 Transcribed by: GALLO on 12/26/2020 at 12:46 Approved by: Toma Rider MD, PhD on 12/26/2020 at 12:56
== END ==
PROVIDERS: Referring Provider Urology; Visit Provider Urology
DX: R39.9 Unspecified symptoms and signs involving the genitourinary system (principal); R35.0 Frequency of micturition
CPT/HCPCS: 76770

== ENCOUNTER → 2021-01-23 11:39 | Outpatient (CLI) | payer MEDICARE, OTHER, SELFPAY ==
[2020-05-24 10:48] VITALS: BMI 23.2
--- NOTE | 2021-01-23 11:41 | DI.MRI.S_ITS ---
PROCEDURE: MR CERVICAL SPINE WO CON INDICATIONS: Spinal stenosis, cervical region TECHNIQUE: Noncontrast sagittal T1 spin echo and T2 fast spin echo, sagittal STIR, foraminal oblique sagittal T2 fast spin echo, and axial gradient echo or T2 fast spin echo through the cervical spine. COMPARISON: [facility], CR, XR CERVICAL SPINE 2 OR 3 VIEWS, 10/30/2020, 15:01. [facility], MR, MR CERVICAL SPINE WITHOUT CONTRAST, 02/08/2020, 13:39. FINDINGS: Image quality: Excellent. Alignment and Curvature: There is normal bony alignment. Bones: Postsurgical changes compatible with C5-C6 ACDF. Spinal Cord: Visualized spinal cord has normal size and signal. No cerebellar tonsillar herniation. Paraspinous Soft Tissues: No paravertebral masses. Prevertebral soft tissues are normal in thickness. Pannus noted at the posterior margin of the dens process of the C2 vertebral body which causes moderate to severe narrowing of the central canal. C2-C3: Loss of disc signal. Mild, diffuse disc bulge. Small central disc protrusion. Moderate to severe narrowing of the central canal. Moderate bilateral neural foraminal narrowing. No neural compression. C3-C4: Loss of disc signal. Mild, diffuse disc bulge. Mild narrowing the central canal. No neural foraminal narrowing. No neural compression. C4-C5: Loss of disc signal. Mild, diffuse disc bulge. Small central disc protrusion. Mild right moderate left facet hypertrophy. Mild narrowing of the central canal. Mild bilateral neural foraminal narrowing. No neural compression. C5-C6: Status post fusion no central stenosis. No neural foraminal narrowing. No neural compression. C6-C7: Loss of disc signal. Mild, diffuse disc bulge. Mild narrowing the central canal. No neural foraminal narrowing. No neural compression. C7-T1: Normal appearance. IMPRESSION: 1. Moderate to severe C1-C2 central canal narrowing secondary to pannus at the dorsal margin of the C2 dens process. Lilia F2. Multilevel degenerative disc disease. 3. Multilevel facet arthropathy. 4. No severe central canal narrowing. 5. No neural compression. 6. C5-C6 ACDF. Dictated by: Toma Rider MD, PhD on 01/23/2021 at 17:17 Approved by: Toma Rider MD, PhD on 01/23/2021 at 17:24
== END ==
PROVIDERS: PCP Internal Medicine; Referring Provider Orthopaedic Surgery; Visit Provider Orthopaedic Surgery
DX: M48.02 Spinal stenosis, cervical region (principal); M47.812 Spondylosis without myelopathy or radiculopathy, cervical region; M50.31 Other cervical disc degeneration, high cervical region; Z98.1 Arthrodesis status
CPT/HCPCS: 72141

== ENCOUNTER 2021-07-05 07:30 | Outpatient (CLI) | payer MEDICARE, OTHER, SELFPAY ==
[2020-05-24 10:48] VITALS: BMI 23.2
--- NOTE | 2021-07-05 07:36 | DI.RAD.S_ITS ---
PROCEDURE: FL MEYELOGRAM SPINE CERVICAL COMPARISON: [facility], MR, MR CERVICAL SPINE WO CON, 01/23/2021, 11:58. Outside Facility, RG, XR C-SPINE 2-3V, 06/12/2021, 13:38. INDICATIONS: CERVICAL, THORACIC STENOSIS. TECHNIQUE: The indications, alternatives, benefits, risks, and complications of the procedure were explained to the patient. Written informed consent was obtained and placed in the chart. The patient was placed in a prone position on the fluoroscopy table, and a site was chosen for percutaneous access under fluoroscopic guidance. A spinal needle was then used to enter the intrathecal space, with return of clear cerebral spinal fluid. 10 mL of Isovue-M 300 contrast material were administered intrathecally under fluoroscopic visualization. The needle was then withdrawn, and a bandage applied to the puncture site. The patient was then placed in a Trendelenburg position to allow contrast migration up to the cervical spine under intermittent fluoroscopic supervision. FINDINGS: Post-injection images demonstrate intrathecal location of the injected contrast material. Access level: L2-3 Needle: 22 gauge spinal needle Medications: 1 % lidocaine for local anesthesia. Complications: None. Patient transferred to CT for subsequent CT myelogram. IMPRESSION: Successful fluoroscopic guided administration of intrathecal contrast material. CT myelogram to follow. Dictated by: Nick Duenas M.D. on 07/05/2021 at 10:45 Approved by: Nick Duenas M.D. on 07/05/2021 at 10:53
--- NOTE | 2021-07-05 07:37 | DI.CT.S_ITS ---
PROCEDURE: CT CERVIAL SPINE W CON INDICATIONS: CERVICAL, THORACIC STENOSIS TECHNIQUE: After the administration of 10mL intrathecal contrast, 3 mm thick sections acquired from the skull base to the T1 level. Sagittal and coronal reformats were then constructed. For radiation dose reduction, the following was used: automated exposure control, adjustment of mA and/or kV according to patient size. COMPARISON: [facility], MR, MR CERVICAL SPINE WO CON, 01/23/2021, 11:58. Outside Facility, RG, XR C-SPINE 2-3V, 06/12/2021, 13:38. [facility], CT, CT THORACIC SPINE W CON, 07/05/2021, 9:05. FINDINGS: Image quality: This examination is somewhat limited by quantum mottle artifact. Bones and alignment: Spinal alignment is normal. No acute fractures. No suspicious bony lesions. Soft tissues: No paraspinal masses. Prevertebral soft tissues are normal in thickness. Visualized neck vasculature appears normal in size. C2-C3: The disc height is well preserved. A mild degree of generalized disc osteophyte complex is seen. There is moderate right-sided and minimal left-sided neural foraminal narrowing. No significant central canal is seen. C3-C4: The disc height is well preserved. Moderate disc osteophyte complex is seen, which is eccentric to the left. There is prominent right-sided and moderate left-sided facet hypertrophy seen. There is at least moderate right-sided and mild left-sided neural foraminal narrowing. Mild central canal narrowing is seen. C4-C5: The disc height is relatively well preserved. A mild degree of generalized disc osteophyte complex is seen. There is moderate right-sided and prominent left-sided facet hypertrophy. There is at least moderate left-sided and no significant right-sided neural foraminal narrowing. Mild central canal narrowing is seen. C5-C6: An anteriorly placed fixation device is seen at this level. No findings of hardware failure or hardware loosening are seen. Mild to moderate disc osteophyte complex is seen. There is moderate right-sided and mild left-sided facet hypertrophy. There is mild right-sided and no significant left-sided neural foraminal narrowing. Mild central canal narrowing is seen. C6-C7: The disc height is well preserved. A mild degree of generalized disc osteophyte complex is seen. No significant neural foraminal narrowing can be seen. Mild central canal narrowing is seen. C7-T1: The disc height is well preserved. A mild degree of generalized disc osteophyte complex is seen. Is there is mild to moderate right-sided and minimal left-sided neural foraminal narrowing. The central canal is widely patent. Miscellaneous: Visualized intracranial structures appear unremarkable. IMPRESSION: Unremarkable anteriorly placed fixation hardware at C5-C6. Multiple levels cervical spine degenerative change are seen, as seen on the recent prior MRI examination. Dictated by: Rodney Howell M.D. on 07/05/2021 at 9:32 Approved by: Rodney Howell M.D. on 07/05/2021 at 9:37
[2021-07-05 08:21] VITALS: BP 147/75; PULSE 54; RESP 18; TEMP 36.8; O2SAT 99; BMI 20.5
[2021-07-05 08:26] LABS: Add Manual Diff / Slide Review NO; Basophils Absolute Auto 100 /uL (0-100); Basophils Percent Auto 1.5 % (0-2); Eosinophils Absolute Auto 200 /uL (0-450); Eosinophils Percent Auto 3.2 % (2-4); Hemoglobin 12.9 g/dL (12.0-16.0); Lymphocytes Absolute Auto 1800 /uL (1100-4500); Mean Corpuscular HGB Conc 33.9 % (30-36); Mean Corpuscular Hemoglobin 33.3 PG (26-34); Mean Corpuscular Volume 98.4 fL (80-100); Monocytes Absolute Auto 300 /uL (0-900); Monocytes Percent Auto 6.3 % (3-14); Neutrophils Absolute Auto 2400 /uL (1500-7000); Platelet Count 230 X10^3/uL (150-400); Red Blood Cell Count 3.86 X10^6/uL (4.0-5.2); Red Cell Distribution Width 13.1 % (11.6-14.8); White Blood Cell Count 4.7 X10^3/uL (4.5-11.0)
[2021-07-05 08:33] LABS: Prothrombin Time 10.8 SECONDS (10.1-12.7)
[2021-07-05 08:36] LABS: PTT Partial Thromboplastin Tim 33 SECONDS (26.4-36.2)
[2021-07-05 08:42] VITALS: BMI 20.5
--- NOTE | 2021-07-05 09:04 | DI.CT.S_ITS ---
PROCEDURE: CT THORACIC SPINE W CON INDICATIONS: CERVICAL, THORACIC STENOSIS TECHNIQUE: After the administration of 10 mL intrathecal contrast, 3 mm thick sections acquired through the region of interest in the thoracic spine. Sagittal and coronal reformats were then constructed. For radiation dose reduction, the following was used: automated exposure control. COMPARISON: None. FINDINGS: Image quality: Excellent. Bones: Vertebral body height, alignment and interspacing is well maintained in the thoracic spine. No lytic or blastic lesion. Small posterior osteophyte noted at T9-10 results in mild central stenosis. Otherwise, there is disc bulge, central or foraminal stenosis. Spinal cord: Normal position, attenuation size of the thoracic spinal cord is noted. Conus terminates at the L1 level. Soft tissues: Heart size is enlarged, there is dense coronary artery vascular calcification. The ascending thoracic aorta is prom 4.2 cm. No paraspinal mass. IMPRESSION: Small T9-10 posterior osteophyte results in mild central stenosis. Approved by: Db Stiles M.D. on 07/05/2021 at 11:16
[2021-07-05 09:13] VITALS: BP 159/67; PULSE 59; RESP 14; O2SAT 100
[2021-07-05 09:19] VITALS: BP 160/70; PULSE 60; RESP 14; O2SAT 100
--- NOTE | 2021-07-05 09:23 | PC.NURSE ---
procedure done, pt alert no sedation meds required. vss. all wnl.
[2021-07-05 10:05] VITALS: BP 152/54; PULSE 55; RESP 16; TEMP 36.4; O2SAT 99
[2021-07-05 10:17] VITALS: BP 152/77; PULSE 62; RESP 16; TEMP 36.4; O2SAT 99
[2021-07-06 12:16] LABS: Fibrinogen Activity 204 mg/dL (193-507)
== END 2021-07-05 11:00 ==
PROVIDERS: PCP Internal Medicine; Referring Provider Orthopaedic Surgery; Visit Provider Orthopaedic Surgery
DX: M48.02 Spinal stenosis, cervical region (principal); Z98.1 Arthrodesis status
CPT/HCPCS: 36415; 61055; 72126; 72129; 72240; 85025; 85384; 85610; 85730